=== PATIENT | female | born 1995 | race Caucasian/White ===

== ENCOUNTER 2016-11-27 14:58 | Emergency (ER) | payer BC ==
[~2016-11-27] VITALS: Ht 162.6 cm; Wt 53.4 kg
[2016-11-27] MEDS ORDERED: ORTHO TRI-CY1 TABLE1 PO (15:12)
[2016-11-27 15:36] LABS: HEMATOCRIT 44.7 % (36.0-46.0); MCH 30.6 PG (29.0-34.0); MCHC 34.2 G/DL (30.0-36.0); MCV 89.4 FL (83-99); PLATELET COUNT 172 K/uL (156-360); RBC DIS.WIDTH-CV 11.7 % (11.8-14.6); RBC DIS.WIDTH-SD 37.4 % (39-53); WHITE BLOOD COUNT 8.6 K/uL (4.1-10.2)
[2016-11-27 15:50] LABS: CHLORIDE 105 mEq/L (99-109); POTASSIUM 3.5 mEq/L (3.7-5.4); SODIUM 139 mEq/L (136-147)
[2016-11-27 15:53] LABS: GLUCOSE 96 mg/dL (70-99)
[2016-11-27 15:54] LABS: ANION GAP 11 MEQ/L (2-14)
[2016-11-27 15:55] LABS: TOTAL BILIRUBIN 0.5 mg/dL (0.0-1.0)
[2016-11-27 15:56] LABS: ALKALINE PHOSPHATASE 61 IU/L (3-129)
[2016-11-27 15:58] LABS: UREA NITROGEN (BUN) 13 mg/dL (9-23)
[2016-11-27 15:59] LABS: GFR ESTIMATE (CALCULATED) > 59 mL/min/
[2016-11-27 16:00] LABS: LIPASE 17 U/L (1.0-51.0)
[2016-11-27 16:08] LABS: QUANTITATIVE HCG < 4.0 MIU/ML
[2016-11-27 16:48] LABS: ADD MIUA? YES; BILIRUBIN NEGATIVE; BLOOD MODERATE; COLOR YELLOW ((YELLOW)); GLUCOSE (STRIP) NEGATIVE; KETONES NEGATIVE; LEUKOCYTES NEGATIVE; NITRITE NEGATIVE; PROTEIN (STRIP) 30; UROBILINOGEN 0.2 MG/DL (0.2-1.0)
[2016-11-27 17:02] LABS: BACTERIA RARE /HPF; EPITHELIAL CELLS 1+ /HPF; MUCUS 1+ /LPF; UCUL ADDED? NO; WHITE BLOOD CELLS 0-5 /HPF (0-5)
[2016-11-27] MEDS ORDERED: ZOFRAN ODT4 MG PO (18:02)
[2016-11-27] MEDS ORDERED: FLOMAX0.4 MG PO (18:02)
[2016-11-27] MEDS ORDERED: MOTRIN800 MG PO (18:02)
[2016-11-27] MEDS ORDERED: ULTRAM50 MG PO (18:02)
[2016-11-27 18:19] VITALS: BP 110/75
== END 2016-11-27 18:20 | disposition home or self-care (01) ==
LOC: EME 14:58
PROVIDERS: Nurse Practitioner Family
DX: N20.0 Calculus of kidney (principal); R31.9 Hematuria, unspecified
CPT/HCPCS: 74177; 80053; 81003; 83690; 84702; 85027; 99281; 99285; J1885; J2405; J7030